=== PATIENT | male | born 1965 | race Caucasian/White ===

== ENCOUNTER 2023-11-30 06:14 | Day surgery (SDC) | payer BC, SELFPAY ==
[2023-11-13 07:26] VITALS: BMI 26.4
[2023-11-30] VITALS (10 sets, daily range): BP systolic 108–135; BP diastolic 61–94; BMI 26.4
[2023-11-30] MEDS: NORMOSOL-R 1000 IV (10:01)
[2023-11-30] MEDS: TYLENOL 1000 MG PO (10:01)
--- NOTE | 2023-11-30 10:12 | W.SUR.PREOP ---
Pre-Operative Surgical Note
-
I have examined this patient prior to the performance of the scheduled procedure.
The patient's condition is unchanged from the time of the current History and
Physical and the patient is able to undergo the scheduled procedure.
--- NOTE | 2023-11-30 13:00 | W.IMMPOSTOP ---
Addendum entered and electronically signed by Osbaldo Melgar MD 12/05/23 16:16:
#[id number]
The assistance of Kristen Neal PA-c was required due to the complexity of the procedure. During the procedure Kristen Neal PA-c assisted with retraction, controlling laparoscopic camera, and closure of the incision sites.
Original Note:
Surgical Immed Post Op Note
-
Primary Surgeon: Talia
Assisting Surgeon: Kristen Neal PA-C
Pre-op Diagnosis: Umbilical hernia, left inguinal hernia
Post-op Diagnosis: Umbilical hernia, 2 cm; left inguinal hernia, indirect
Procedure Performed: Lap TEP LIH repair with mesh; 3d max large,regular
Open UHR with mesh; VentralexST 6.4 round
Anesthesia Type: GETA + 0.25% Marcaine/1%lido
Specimen / Cultures: none
Estimated Blood Loss: 10mL
Complications: none immediate
Operative Findings: Left inguinal hernia, indirect. 3D max large regular rate mesh repair. No fixation. Normal direct and femoral space. No peritoneal entry with dissection.
Umbilical hernia, 2 cm fascial defect. Preperitoneal underlay mesh repair, Ventralex ST 6.4 cm round. Closure of fascia with 0 PDS
== END 2023-11-30 15:05 | disposition home or self-care (01) ==
LOC: SDS 06:14
PROVIDERS: ATTENDING PHYSICIAN Surgery; FAMILY PHYSICIAN Family Medicine
DX: K42.9 Umbilical hernia without obstruction or gangrene (principal); K40.90 Unilateral inguinal hernia, without obstruction or gangrene, not specified as recurrent
CPT/HCPCS: 49650; 49591; 36415; 87070; 93005; C1781

== ENCOUNTER → 2025-01-28 10:03 | Outpatient (REF) | payer BC, SELFPAY | LOC: HWRCS 10:03 | PROVIDERS: ATTENDING PHYSICIAN Nuclear Medicine Nuclear Cardiology; FAMILY PHYSICIAN Family Medicine | DX: R06.02 Shortness of breath (principal) | CPT/HCPCS: 93306 ==

== ENCOUNTER → 2025-03-23 08:44 | Outpatient (REF) | payer SELFPAY | LOC: HWRAD 08:44 | PROVIDERS: ATTENDING PHYSICIAN Family Medicine | DX: Z13.6 Encounter for screening for cardiovascular disorders (principal) | CPT/HCPCS: 75571 ==

== ENCOUNTER → 2025-04-27 09:27 | Outpatient (REF) | payer BC, SELFPAY | LOC: HWRAD 09:27 | PROVIDERS: ATTENDING PHYSICIAN Nurse Practitioner Family; FAMILY PHYSICIAN Family Medicine | DX: R91.8 Other nonspecific abnormal finding of lung field (principal) | CPT/HCPCS: 71250 ==